=== PATIENT | female | born 1970 | race Caucasian/White ===

== ENCOUNTER 2018-09-22 15:02 | Emergency (ER) | payer MEDICAID ==
[~2018-09-22] VITALS: Ht 162.6 cm; Wt 65.8 kg
[2018-09-22] MEDS ORDERED: ZYPREXA10 MG PO ×2 (15:17→15:20)
[2018-09-22] MEDS ORDERED: ZYPREXA20 MG (15:17)
[2018-09-22] MEDS ORDERED: ZYPREXA 10 MG T10 MG PO (15:18)
[2018-09-22] MEDS ORDERED: PROZAC10 MG (15:18)
[2018-09-22] MEDS ORDERED: PROZAC20 MG PO (15:20)
[2018-09-22 15:46] VITALS: BP 129/80
== END 2018-09-22 15:47 | disposition home or self-care (01) ==
LOC: M.ERS 15:02
DX: F41.9 Anxiety disorder, unspecified (principal); F31.9 Bipolar disorder, unspecified; Z88.1 Allergy status to other antibiotic agents; Z88.8 Allergy status to other drugs, medicaments and biological substances